=== PATIENT | female | born 1970 | race African-American/Black ===

== ENCOUNTER 2021-02-14 09:58 | Emergency (ER) | payer OTHER | END 2021-02-14 10:19 | disposition left against medical advice (07) | DRG 951 | LOC: ED 09:58 → LWOBS 10:19 | DX: Z53.21 Procedure and treatment not carried out due to patient leaving prior to being seen by health care provider (principal) ==

== ENCOUNTER 2021-06-11 13:30 | Emergency (ER) | payer OTHER ==
[~2021-06-11] VITALS: Ht 162.6 cm; Wt 72.3 kg
[2021-06-11] MEDS ORDERED: COZAAR25 MG PO (16:01)
[2021-06-11] MEDS ORDERED: ULTRAM50 MG PO (17:01)
[2021-06-11] MEDS ORDERED: FLEXERIL5 M1 PO (17:01)
[2021-06-11 17:12] VITALS: BP 140/78
== END 2021-06-11 17:15 | disposition home or self-care (01) ==
LOC: ED 13:30
DX: S39.012A Strain of muscle, fascia and tendon of lower back, initial encounter (principal); M47.816 Spondylosis without myelopathy or radiculopathy, lumbar region; I10 Essential (primary) hypertension; E11.9 Type 2 diabetes mellitus without complications; W10.9XXA Fall (on) (from) unspecified stairs and steps, initial encounter

== ENCOUNTER 2021-11-11 11:51 | Emergency (ER) | payer OTHER ==
[2021-11-11] VITALS (7 sets, daily range): BP systolic 115–153; BP diastolic 65–81
[~2021-11-11] VITALS: Ht 162.6 cm; Wt 74.0 kg
[~2021-11-11 11:51] MED LIST: COZAAR25 MG PO; FLEXERIL5 M1 PO; ULTRAM50 MG PO
[2021-11-11 13:57] LABS: HEMOGLOBIN 12.1 g/dl (12.0-16.0); MEAN CORPUSCULAR HGB 30.4 pG CALC (26.0-32.0); MEAN CORPUSCULAR HGB CONC 32.7 g/dL CAL (32.0-36.0); NEUT# 3.46 thou/uL (2.00-7.15); RED BLOOD COUNT 3.98 mill/uL (4.20-5.60); RED CELL DISTRI WIDTH 14.5 % (11.5-15.5)
[2021-11-11 14:23] LABS: ALBUMIN 4.1 g/dL (3.2-5.0); ALKALINE PHOSPHATASE 50 u/l (38-126); ANION GAP 10 (6-22 (CALC)); BILIRUBIN, TOTAL 0.4 mg/dL (0.0-1.4); BUN 9 mg/dL (7-17); BUN/CREATININE RATIO 24 (12-20 (CALC)); C-REACTIVE PROTEIN < 0.5 mg/dL (0-0.9); CARBON DIOXIDE 28 mmol/l (22-30); CHLORIDE 101 mmol/l (95-108); CREATININE 0.4 mg/dL (0.5-1.0); GFR > 60 ML/MIN (>=60 (CALC)); GFR FOR AFR.AMER. > 60 ML/MIN (>=60 (CALC)); POTASSIUM 3.8 mmol/l (3.5-5.1); SGOT/AST 21 u/l (14-36); SODIUM 136 mmol/l (137-146); TOTAL PROTEIN 7.1 g/dL (6.3-8.2)
[2021-11-11] MEDS ORDERED: MEDDOSEPAK PO (14:48)
== END 2021-11-11 15:27 | disposition home or self-care (01) ==
LOC: ED 11:51
PROVIDERS: Nurse Practitioner
DX: M25.512 Pain in left shoulder (principal); M25.511 Pain in right shoulder; I10 Essential (primary) hypertension; E11.9 Type 2 diabetes mellitus without complications

== ENCOUNTER 2022-01-02 07:56 | Emergency (ER) | payer OTHER ==
[~2022-01-02] VITALS: Ht 162.6 cm; Wt 74.8 kg
[~2022-01-02 07:56] MED LIST changes: +MEDDOSEPAK PO
[2022-01-02 08:02] VITALS: BP 182/91
[2022-01-02] MEDS ORDERED: HUMULIN R500 UNIT/M SC (08:11)
[2022-01-02] MEDS ORDERED: LOSARTAN POTASS50 MG PO (08:11)
[2022-01-02] MEDS ORDERED: NAPROXEN500 MG PO (08:15)
[2022-01-02] MEDS ORDERED: CYCLOBENZAPRINE10 MG PO (08:15)
[2022-01-02 08:21] VITALS: BP 182/91
== END 2022-01-02 08:32 | disposition home or self-care (01) ==
LOC: ED 07:56
DX: M25.511 Pain in right shoulder (principal); I10 Essential (primary) hypertension; E11.9 Type 2 diabetes mellitus without complications; Z79.4 Long term (current) use of insulin

== ENCOUNTER 2022-03-11 06:47 | Emergency (ER) | payer OTHER ==
[~2022-03-11] VITALS: Ht 162.6 cm; Wt 71.0 kg
[~2022-03-11 06:47] MED LIST changes: +CYCLOBENZAPRINE10 MG PO; +HUMULIN R500 UNIT/M SC; +LOSARTAN POTASS50 MG PO; +NAPROXEN500 MG PO
[2022-03-11 06:56] VITALS: BP 159/76
[2022-03-11 07:00] VITALS: BP 135/70
[2022-03-11 07:15] VITALS: BP 159/75
[2022-03-11] MEDS ORDERED: EC-NAPROXEN500 MG PO (07:22)
[2022-03-11] MEDS ORDERED: FLEXERIL5 M1 PO (07:22)
[2022-03-11] MEDS ORDERED: MEDROL4 M1 PO (07:22)
[2022-03-11 07:30] VITALS: BP 125/76
== END 2022-03-11 07:39 | disposition home or self-care (01) ==
LOC: ED 06:47
DX: M25.511 Pain in right shoulder (principal); I10 Essential (primary) hypertension; E11.9 Type 2 diabetes mellitus without complications; Z79.4 Long term (current) use of insulin

== ENCOUNTER 2022-12-02 09:35 | Emergency (ER) | payer OTHER ==
[~2022-12-02] VITALS: Ht 162.6 cm; Wt 74.0 kg
[2022-12-02] VITALS (10 sets, daily range): BP systolic 134–163; BP diastolic 66–88
[~2022-12-02 09:35] MED LIST changes: +EC-NAPROXEN500 MG PO; +MEDROL4 M1 PO
[2022-12-02 10:43] LABS: URINE BILIRUBIN - DIPSTICK NEGATIVE (NEGATIVE); URINE BLOOD DIPSTICK NEGATIVE (NEGATIVE); URINE COLOR YELLOW; URINE GLUCOSE - DIPSTICK >=1000 mg/dL (NEGATIVE); URINE KETONE NEGATIVE (NEGATIVE); URINE LEUK ESTERASE NEGATIVE (NEGATIVE); URINE PROTEIN - DIPSTICK NEGATIVE (NEG-TRACE); URINE SPECIFIC GRAVITY 1.015; URINE UROBILINOGEN - DIPSTICK 0.2 E.U./dL (0.2)
[2022-12-02 10:48] LABS: URINE NITRITE - DIPSTICK POSITIVE (Negative)
[2022-12-02 10:49] LABS: URINE BACTERIA MANY hpf; URINE EPITHELIAL CELLS FEW EPI/hpf (0-FEW)
[2022-12-02 10:50] LABS: BASO% 0.3 % (0-3); EOS% 0.7 % (0-8); HEMATOCRIT 40.6 % (37.0-47.0); HEMOGLOBIN 12.8 g/dl (12.0-16.0); IMMATURE GRANULOCYTES 0.2 % (0.0-5.0); LYMPH% 26.9 % (15-41); MEAN CELL VOLUME 92.5 fL CALC (80.0-100.0); MEAN CORPUSCULAR HGB 29.2 pG CALC (26.0-32.0); MEAN CORPUSCULAR HGB CONC 31.5 g/dL CAL (32.0-36.0); MONO% 6.7 % (2-13); NEUT# 3.98 thou/uL (2.00-7.15); NEUT% 65.2 % (42-76); RED BLOOD COUNT 4.39 mill/uL (4.20-5.60)
[2022-12-02 10:53] LABS: ALBUMIN 4.5 g/dL (3.2-5.0); ALKALINE PHOSPHATASE 63 u/l (38-126); ANION GAP 12 (6-22 (CALC)); BUN 12 mg/dL (7-17); BUN/CREATININE RATIO 20 (12-20 (CALC)); CARBON DIOXIDE 25 mmol/l (22-30); CHLORIDE 101 mmol/l (95-108); CREATININE 0.6 mg/dL (0.5-1.0); GFR FOR AFR.AMER. > 60 ML/MIN (>=60 (CALC)); GFR OTHER RACES > 60 ML/MIN (>=60 (CALC)); POTASSIUM 4.3 mmol/l (3.5-5.1); SGOT/AST 27 u/l (14-36); SODIUM 135 mmol/l (137-146)
[2022-12-02 10:54] LABS: BILIRUBIN, TOTAL 0.1 mg/dL (0.02-1.3)
[2022-12-02] MEDS ORDERED: LOMOTIL2.5 MG PO (12:04)
[2022-12-02] MEDS ORDERED: AZITHROMYCIN500 MG PO (12:04)
--- NOTE | 2022-12-04 14:59 | NUR ---
Attempted to contact patient to assess for UTI symptoms.
== END 2022-12-02 12:20 | disposition home or self-care (01) ==
LOC: ED 09:35
PROVIDERS: Family Medicine
DX: R19.7 Diarrhea, unspecified (principal); I10 Essential (primary) hypertension; E11.9 Type 2 diabetes mellitus without complications; E78.00 Pure hypercholesterolemia, unspecified; Z79.4 Long term (current) use of insulin; Z20.822 Contact with and (suspected) exposure to COVID-19

== ENCOUNTER 2022-12-20 16:48 | Emergency (ER) | payer OTHER ==
[~2022-12-20] VITALS: Ht 162.6 cm; Wt 74.3 kg
[~2022-12-20 16:48] MED LIST changes: +AZITHROMYCIN500 MG PO; +LOMOTIL2.5 MG PO
[2022-12-20 17:01] VITALS: BP 190/87
[2022-12-20] MEDS ORDERED: PRAVASTATIN80 MG PO (17:29)
[2022-12-20 17:45] LABS: URINE BILIRUBIN - DIPSTICK NEGATIVE (NEGATIVE); URINE BLOOD DIPSTICK MODERATE (NEGATIVE); URINE COLOR YELLOW; URINE GLUCOSE - DIPSTICK >=1000 mg/dL (NEGATIVE); URINE KETONE NEGATIVE (NEGATIVE); URINE LEUK ESTERASE SMALL (NEGATIVE); URINE NITRITE - DIPSTICK POSITIVE (Negative); URINE PROTEIN - DIPSTICK NEGATIVE (NEG-TRACE); URINE SPECIFIC GRAVITY 1.015; URINE UROBILINOGEN - DIPSTICK 0.2 E.U./dL (0.2)
[2022-12-20 17:56] LABS: URINE BACTERIA FEW hpf; URINE SQUAMOUS EPITHELIAL CELL FEW EPI/hpf (0-FEW)
[2022-12-20] MEDS ORDERED: BACTRIM DS1 TAB PO (18:31)
[2022-12-20] MEDS ORDERED: DIFLUCAN100 M1 PO (18:31)
[2022-12-20 19:21] VITALS: BP 156/88
== END 2022-12-20 18:45 | disposition home or self-care (01) ==
LOC: ED 16:48
PROVIDERS: Family Medicine
DX: N39.0 Urinary tract infection, site not specified (principal); B96.20 Unspecified Escherichia coli [E. coli] as the cause of diseases classified elsewhere; B37.31 Acute candidiasis of vulva and vagina; I10 Essential (primary) hypertension; E11.9 Type 2 diabetes mellitus without complications; E78.00 Pure hypercholesterolemia, unspecified